=== PATIENT | male | born 1940 | race Caucasian/White ===

== ENCOUNTER 2018-03-04 05:32 | Day surgery (SDC) | payer OTHER ==
[2018-02-22 10:40] VITALS: BP 167/86
[~2018-03-04] VITALS: Ht 177.8 cm; Wt 103.1 kg
[2018-03-04] VITALS (14 sets, daily range): BP systolic 136–176; BP diastolic 72–126
[~2018-03-04 05:32] MED LIST: APIX5TAB PO; ASPI-555 PO; ATOR20TA65 PO; CEFAZOLIN SODIUM 1 GM VIAL IVP ONE; WATER FOR INJECTION,STERILE 20 ML VIAL IJ ONE
[2018-03-04] MEDS ORDERED: LACTATED RINGERS 1000ML 1,000 ML IV ONE (06:31)
[2018-03-04] MEDS ORDERED: CEFAZOLIN SODIUM 1 GM VIAL ONE (06:31)
[2018-03-04] MEDS ORDERED: LIDOCAINE HCL-MPF 0.5% 50ML VIAL IJ ONE (06:48)
[2018-03-04] MEDS ORDERED: DEXAMETHASONE SOD PHOSPHATE 10MG/ML 1ML VIAL ONE (06:50)
[2018-03-04] MEDS ORDERED: NEOSTIGMINE 5MG/5ML SYR IV ONE (06:50)
[2018-03-04] MEDS ORDERED: LIDOCAINE PF 2% 5ML ABBOJECT ONE (06:50)
[2018-03-04] MEDS ORDERED: GLYCOPYRROLATE 0.2 MG/ML 5 ML VIAL ONE (06:50)
[2018-03-04] MEDS ORDERED: MIDAZOLAM HCL 1 MG/ML 2ML VIAL ONE (06:52)
[2018-03-04] MEDS ORDERED: PROPOFOL 10 MG/ML 20ML VIAL IV ONE (06:52)
[2018-03-04] MEDS ORDERED: FENTANYL CITRATE PF 50 MCG/1 ML 2ML VIAL ONE ×2 (06:53→08:23)
[2018-03-04] MEDS ORDERED: TRAM50TA4 PO (09:42)
== END 2018-03-04 10:10 | disposition home or self-care (01) ==
LOC: DAH 05:32
PROVIDERS: ATTEND Neurological Surgery
DX: G56.01 Carpal tunnel syndrome, right upper limb (principal); Z79.01 Long term (current) use of anticoagulants; Z79.82 Long term (current) use of aspirin; Z79.899 Other long term (current) drug therapy; Z95.1 Presence of aortocoronary bypass graft
CPT/HCPCS: 64721; 93005; A4218; J0690; J1100; J2001; J2250; J2704; J2710; J3010 ×2; J3490 ×2; J7120

== ENCOUNTER 2018-10-27 05:48 | Day surgery (SDC) | payer OTHER ==
[2018-10-25 11:34] VITALS: BP 146/76
[~2018-10-27] VITALS: Ht 177.8 cm; Wt 103.7 kg
[2018-10-27] VITALS (13 sets, daily range): BP systolic 142–175; BP diastolic 76–102
[2018-10-27] MEDS: CEFAZOLIN SODIUM 1 GM VIAL IVP SCH ×2 (05:00→07:30)
[~2018-10-27 05:48] MED LIST changes: -APIX5TAB PO; -ATOR20TA65 PO; -CEFAZOLIN SODIUM 1 GM VIAL IVP ONE; +CRANBERRY; +EYE VITAMIN PO; +VITA1CAP85 PO; +VITAMIN D3 PO; -WATER FOR INJECTION,STERILE 20 ML VIAL IJ ONE
[2018-10-27] MEDS ORDERED: LACTATED RINGERS 1000ML 1,000 ML IV ONE (06:26)
[2018-10-27] MEDS ORDERED: LIDOCAINE PF 2% 5ML ABBOJECT ONE (06:53)
[2018-10-27] MEDS ORDERED: MIDAZOLAM HCL 1 MG/ML 2ML VIAL ONE (06:54)
[2018-10-27] MEDS ORDERED: ONDANSETRON HCL 4 MG/2 ML VIAL ONE ×2 (06:54→07:59)
[2018-10-27] MEDS ORDERED: DEXAMETHASONE SOD PHOSPHATE 10MG/ML 1ML VIAL ONE ×2 (06:54→08:00)
[2018-10-27] MEDS ORDERED: PROPOFOL 10 MG/ML 20ML VIAL IV ONE (06:54)
[2018-10-27] MEDS ORDERED: FENTANYL CITRATE PF 50 MCG/1 ML 2ML VIAL ONE (06:55)
[2018-10-27] MEDS ORDERED: LIDOCAINE HCL-MPF 0.5% 50ML VIAL IJ ONE (06:56)
[2018-10-27] MEDS ORDERED: PHENYLEPHRINE HCL 10 MG/ML 1ML VIAL IV ONE (08:06)
== END 2018-10-27 09:45 | disposition home or self-care (01) ==
LOC: DAH 05:48
PROVIDERS: ATTEND Neurological Surgery
DX: G56.02 Carpal tunnel syndrome, left upper limb (principal); Z95.1 Presence of aortocoronary bypass graft; Z98.49 Cataract extraction status, unspecified eye; I10 Essential (primary) hypertension; Z79.899 Other long term (current) drug therapy; I25.10 Atherosclerotic heart disease of native coronary artery without angina pectoris
CPT/HCPCS: 64721; 93005; J0690; J1100 ×2; J2001; J2250; J2370; J2405 ×2; J2704; J3010; J3490; J7120

== ENCOUNTER → 2021-01-11 | Outpatient (CLI) | payer OTHER ==
[~2021-01-11] MED LIST changes: -ASPI-555 PO; +ASPI-556 PO
== END | disposition home or self-care (01) ==
LOC: SHCH 09:01
PROVIDERS: ATTEND Internal Medicine Cardiovascular Disease
DX: I48.0 Paroxysmal atrial fibrillation (principal); Z95.1 Presence of aortocoronary bypass graft
CPT/HCPCS: 93306; 93356